=== PATIENT | male | born 1960 | race Caucasian/White ===

== ENCOUNTER 2016-07-16 10:55 | Inpatient (IN) | payer OTHER ==
[~2016-07-16] VITALS: Ht 172.7 cm; Wt 68.6 kg
[~2016-07-16 10:55] MED LIST: AUGMENTIN875 MG PO
[2016-07-16 11:44] LABS: MCHC 33.3 G/DL (30.0-36.0); MCV 93.1 FL (86-99); MEAN PLAT.VOLUME 11.4 uM^3 (9.0-12.4); PLATELET COUNT 277 K/uL (156-360); RBC DIS.WIDTH-CV 13.8 % (11.8-14.6); RBC DIS.WIDTH-SD 45.4 % (39-53); RED BLOOD COUNT 5.48 M/uL (4.00-5.50); WHITE BLOOD COUNT 24.7 K/uL (4.1-10.2)
[2016-07-16 11:51] LABS: CHLORIDE 106 mEq/L (99-109); POTASSIUM 4.1 mEq/L (3.7-5.4); SODIUM 141 mEq/L (136-147)
[2016-07-16 11:53] LABS: GLUCOSE 134 mg/dL (70-99)
[2016-07-16 11:54] LABS: ANION GAP 14 MEQ/L (2-14)
[2016-07-16 11:57] LABS: GFR ESTIMATE (CALCULATED) > 59 mL/min/
[2016-07-16 11:58] LABS: UREA NITROGEN (BUN) 11 mg/dL (9-23)
[2016-07-16 13:24] LABS: ADD MIUA? NO; BILIRUBIN NEGATIVE; BLOOD NEGATIVE; COLOR YELLOW ((YELLOW)); GLUCOSE (STRIP) NEGATIVE; KETONES NEGATIVE; LEUKOCYTES NEGATIVE; NITRITE NEGATIVE; PROTEIN (STRIP) NEGATIVE; SPECIFIC GRAVITY 1.042 (1.000-1.030); UCUL ADDED? NO; UROBILINOGEN 0.2 MG/DL (0.2-1.0)
[2016-07-16] MEDS ORDERED: ECHINACEA167 MG PO (16:20)
[2016-07-16] MEDS ORDERED: ONE-A-DAY ESSE1 EAC1 PO (16:20)
[2016-07-16 21:21] VITALS: BP 151/72
[2016-07-17 04:07] VITALS: BP 164/74
[2016-07-17 08:24] VITALS: BP 166/71
[2016-07-17 11:50] VITALS: BP 161/78
[2016-07-17 15:59] VITALS: BP 156/73
[2016-07-17] MEDS ORDERED: HYDROCODON-ACE1 EA11 PO (16:00)
== END 2016-07-17 17:23 | disposition home or self-care (01) | DRG 563 ==
LOC: EME 10:55 → EDOF 16:20 → 3EAST 16:20
PROVIDERS: Nurse Practitioner Family
DX: S82.141A Displaced bicondylar fracture of right tibia, initial encounter for closed fracture (principal); S22.31XA Fracture of one rib, right side, initial encounter for closed fracture; S32.049A Unspecified fracture of fourth lumbar vertebra, initial encounter for closed fracture; S32.019A Unspecified fracture of first lumbar vertebra, initial encounter for closed fracture; S32.029A Unspecified fracture of second lumbar vertebra, initial encounter for closed fracture; S32.039A Unspecified fracture of third lumbar vertebra, initial encounter for closed fracture; E86.0 Dehydration; F10.10 Alcohol abuse, uncomplicated; F17.210 Nicotine dependence, cigarettes, uncomplicated; R19.7 Diarrhea, unspecified; V86.59XA Driver of other special all-terrain or other off-road motor vehicle injured in nontraffic accident, initial encounter; Y99.9 Unspecified external cause status; Y93.19 Activity, other involving water and watercraft; Y92.9 Unspecified place or not applicable
CPT/HCPCS: 70450; 72131; 72132; 73564; 73700; 74177; 80048; 81003; 85027; 86850; 86900; 86901; 87493; 99281; 99285; C9113; G0480; J1170; J2270; J2405; J3480; J7030

== ENCOUNTER 2017-09-30 15:34 | Emergency (ER) | payer OTHER ==
[~2017-09-30] VITALS: Ht 172.7 cm; Wt 68.9 kg
[~2017-09-30 15:34] MED LIST changes: +ECHINACEA167 MG PO; +HYDROCODON-ACE1 EA11 PO; +ONE-A-DAY ESSE1 EAC1 PO
[2017-09-30 16:13] LABS: HEMATOCRIT 42.3 % (38.0-50.0); HEMOGLOBIN 14.3 G/DL (12.5-16.6); MCH 31.4 PG (29.0-34.0); MCHC 33.8 G/DL (30.0-36.0); RBC DIS.WIDTH-CV 14.1 % (11.8-14.6); RBC DIS.WIDTH-SD 48.1 % (39-53); RED BLOOD COUNT 4.55 M/uL (4.00-5.50); WHITE BLOOD COUNT 11.5 K/uL (4.1-10.2)
[2017-09-30 16:22] LABS: ALBUMIN 4.3 g/dL (3.2-4.8); CHLORIDE 108 mEq/L (99-109); POTASSIUM 3.9 mEq/L (3.7-5.4); PTT 32.5 SEC (25-37); SODIUM 142 mEq/L (136-147)
[2017-09-30 16:25] LABS: GLUCOSE 97 mg/dL (70-99); TOTAL PROTEIN 6.9 g/dL (6.4-8.3)
[2017-09-30 16:27] LABS: TOTAL BILIRUBIN 0.5 mg/dL (0.0-1.0)
[2017-09-30 16:28] LABS: ALKALINE PHOSPHATASE 73 IU/L (3-129); CREATININE 0.8 mg/dL (0.6-1.3); GFR ESTIMATE (CALCULATED) > 59 mL/min/ (58.99-99999)
[2017-09-30 16:29] LABS: UREA NITROGEN (BUN) 12 mg/dL (9-23)
[2017-09-30 16:30] LABS: AST (GOT) 19 IU/L (2-34)
[2017-09-30 16:31] LABS: ALT (GPT) 15 IU/L (3-49)
[2017-09-30 16:56] LABS: PLAT.SUFFICIENCY ADEQUATE; PLATELET COUNT 248 K/uL (156-360)
[2017-09-30 17:18] VITALS: BP 148/74
== END 2017-09-30 17:19 | disposition home or self-care (01) ==
LOC: EME 15:34
PROVIDERS: Nurse Practitioner Family
DX: S61.230A Puncture wound without foreign body of right index finger without damage to nail, initial encounter (principal); T63.001A Toxic effect of unspecified snake venom, accidental (unintentional), initial encounter; K21.9 Gastro-esophageal reflux disease without esophagitis; F17.200 Nicotine dependence, unspecified, uncomplicated
CPT/HCPCS: 80053; 85027; 85610; 85730; 99281; 99284